=== PATIENT | female | born 1960 | race Caucasian/White ===

== ENCOUNTER 2020-02-13 09:03 | Emergency (ER) | payer BC, SELFPAY ==
[2020-02-13 09:13] VITALS: BP 147/86; PULSE 81; RESP 16; TEMP 36.4; O2SAT 100
--- NOTE | 2020-02-13 09:16 | ED.GENADUL_ITS ---
Discharge Plan Disposition Patient Disposition: HOME Condition: Stable Discharge Details Chief Complaint: Orthopedic Clinical Impression: Left wrist sprain Primary Care Provider: Heydi,Local ED Provider: Prisca Mahmood Home Meds and New Rx's Prescriptions: Continued Tirosint 137 mcg Capsule 137 mcg PO DAILY RF: 0 Hormone Replacement Cream DAILY RF: 0 Discharge Instructions Instructions: Wrist Sprain (ED) Additional Instructions: Rest, ice, and elevate the affected area as much as possible. Alternate tylenol and motrin as needed and directed for pain. Follow-up with your primary care doctor in 1 week as needed. Return to the emergency department with any worsening or new concerning symptoms. Discharge Data Discharge Physician: Prisca Mahmood Medical Decision Making 59yoF presents for left wrist pain for the past 2-1/2 weeks. Has not taken consistent medication for pain. Has been walking for large dogs which have been pulling and anticoagulation. Denies any known specific injury. Left wrist normal to inspection. Pain with flexion at wrist. Neurovascularly intact. No signs of carpal tunnel syndrome. Differential diagnosis includes occult fracture, sprain, strain, tendinitis. She declined a dose of Tylenol. Will refer for left wrist x-ray. Left wrist x-ray reviewed with radiology and negative. Patient given wrist splint which she states is comfortable. Advised on the importance of rice. Advised to follow-up as needed. Usual and customary return precautions given prior to discharge. Medical Records Medical records reviewed: Yes I reviewed the patient's medical records. Imaging Data Radiologic Study: Radiologist's impression: XR WRIST LT COMPLETE CLINICAL HISTORY: L wrist sprain, r/o acute fracture. TECHNIQUE: 2D digital imaging was performed. COMPARISON: No exams were available for comparison FINDINGS: BONES: No acute fracture is present. No bony destructive lesion is seen. JOINTS: The carpal bones are normally aligned. SOFT TISSUE: Normal. IMPRESSION: Unremarkable radiographs of the left wrist. HPI General Mode of arrival: ambulatory . Date/Time Provider Initiated Documentation: 02/13/20 09:13 . Limitations to Documentation: no limitations . Information obtained by: patient . HPI Narrative: Patient is a 59-year-old female presents with left wrist pain for the past 2.5 weeks. Patient states she recently drove from [place] and has large dogs which she has to walk frequently and they are pulling and yanking on the leash. She denies any known specific injury. She is also left-handed and has been writing a lot as her profession is a [employer]. She cannot take ibuprofen due to a previous history of ischemic bowel. She has not been taking any other pain medication other than Tylenol very rarely. She states she purchased a wrist splint and it has not been working. Related Data Home Medications Medication Instructions Recorded Confirmed Hormone Replacement Cream DAILY 02/13/20 Tirosint 137 mcg PO DAILY 02/13/20 02/13/20 Allergies Allergy/AdvReac Type Severity Reaction Status Date / Time No Known Allergies Allergy Unverified 02/13/20 09:18 Review of Systems All systems reviewed & are unremarkable except as noted in HPI and below PFSH Medical History Factor V Leiden (Acute) Ischemic bowel disease (Acute) Thyroid cancer (Acute) Surgical History History of thyroidectomy (Chronic) Social History (Updated 02/13/20 @ 09:32 by Prisca Mahmood DO) Smoking/Tobacco Use Status: Never Alcohol Intake: current Alcohol Intake frequency: a few times a month Alcohol type: wine Substance use type: does not use Exam Const General: cooperative, healthy appearing and no acute distress HENMT Head: normal to inspection Face and sinus: normal facial exam Eyes General: appearance normal, both eyes and all related structures EOM: EOM intact bilaterally Neck Neck: normal visual inspection and No submandibular swelling Lymphatic: no lymphadenopathy noted Chest Chest: normal inspection of the chest and no tenderness Resp Effort & Inspection: normal respiratory effort and able to speak in complete sentences Cardio Rate: regular rate Skin General skin exam: no rashes or lesions noted Neuro General: patient alert, patient awake and patient oriented x3 Cognition: normal cognition Speech: speech normal Motor: muscle tone normal throughout, strength 5/5 throughout and other (Negative Phalen and Tinel's sign) Sensory Exam: no sensory deficits noted Extrem Left upper extremity: wrist Details: tenderness Location: of the dorsal wrist and abnormal ROM Details: pain with active ROM Details: with flexion and pain with passive ROM Details: in flexion; no swelling and hand Details: normal to inspection, normal capillary refill, neuromotor exam normal, neurosensory exam normal, normal ROM of fingers, no swelling and other Psych Appearance: grossly normal Mental Status: mental status grossly normal Speech and Movement: speech and movement normal Affect: normal affect
--- NOTE | 2020-02-13 09:30 | DI.RAD_ITS ---
EXAM: XR WRIST LT COMPLETE CLINICAL HISTORY: L wrist sprain, r/o acute fracture. TECHNIQUE: 2D digital imaging was performed. COMPARISON: No exams were available for comparison FINDINGS: BONES: No acute fracture is present. No bony destructive lesion is seen. JOINTS: The carpal bones are normally aligned. SOFT TISSUE: Normal. IMPRESSION: Unremarkable radiographs of the left wrist. DATA REPOSITORY: RADIATION DOSE DELIVERED:
== END 2020-02-13 10:46 | disposition home or self-care (01) ==
PROVIDERS: Emergency Provider Physician Assistant
DX: M70.832 Other soft tissue disorders related to use, overuse and pressure, left forearm (principal)
CPT/HCPCS: 29125; 99283; 73110; L3908

== ENCOUNTER 2022-02-26 10:09 | Emergency (ER) | payer BC, SELFPAY ==
[2022-02-26 10:10] VITALS: BP 148/82; PULSE 83; RESP 20; TEMP 36.3; O2SAT 98
[2022-02-26 10:36] LABS: Abs Immature Grans 0.02 10^3/uL (0.0-0.06); Absolute Basophil Count 0.03 10^3/uL (0.0-0.2); Absolute Eosinophil Count 0.09 10^3/uL (0.0-0.7); Absolute Lymphocyte Count 1.65 10^3/uL (1.2-3.4); Absolute Monocyte Count 0.39 10^3/uL (0.1-0.8); Absolute Neutrophil Count 3.94 10^3/uL (1.2-6.7); Basophils % 0.5; Eosinophils % 1.5; HCT 40.9 % (36.0-46.0); HGB 13.8 g/dL (11.2-15.7); Immature Grans % 0.3; MCH 34.2 pg (27.0-33.0); MCHC 33.7 % (32.0-36.0); MCV 101 fL (80-95); MPV 8.2 fL (8.0-11.0); Monocytes % 6.4; Neutrophils % 64.3; Platelet Count 282 10^3/uL (130-400); RBC 4.04 10^6/uL (3.93-5.22); RDW-SD 45.2 fL; WBC 6.12 10^3/uL (4.4-10.8)
[2022-02-26 10:50] LABS: ALT 48 U/L (14-59); AST 25 U/L (15-37); Albumin 3.9 g/dL (3.4-5.0); Alkaline Phosphatase 59 U/L (46-116); Anion Gap 9.2 mmol/L (3-11); BUN 9 mg/dL (7-18); Bilirubin, Total 0.2 mg/dL (0.2-1.0); CO2 26.8 mmol/L (21.0-32.0); CREATININE 0.8 mg/dL (0.55-1.02); Calcium 8.7 mg/dL (8.5-10.1); Chloride 101 mmol/L (98-107); Glucose 116 mg/dL (74-106); Lipase 187 U/L (73-393); Potassium 3.8 mmol/L (3.5-5.1); Sodium 137 mmol/L (136-145); Total Protein 7.2 g/dL (6.4-8.2)
[2022-02-26] MEDS: Normal Saline 1,000 ML 1000 ML IV (11:00)
--- NOTE | 2022-02-26 11:01 | W.ED.GENAD ---
Discharge Plan Disposition Patient Disposition: HOME Condition: Stable Discharge Details Clinical Impression: Vaginal bleeding Primary Care Provider: Heydi,Local ED Provider: Azael Maldonado Home Meds and New Rx's Prescriptions: Continued Hormone Replacement Cream DAILY amlodipine 2.5 mg Tablet 2.5 mg PO DAILY nebivolol 10 mg Tablet 10 mg PO DAILY desvenlafaxine succinate 50 mg Tablet Extended Release 24 Hr 50 mg PO DAILY thyroid (pork) [[place] Thyroid] 120 mg Tablet 120 mg PO DAILY Discharge Instructions Instructions: Abnormal (Dysfunctional) Uterine Bleeding (ED) Additional Instructions: Laboratory values are reassuring at this time. Dr. Suarez personally evaluated you here in the ER and she will be happy to follow you in her office as an outpatient, I have supplied you with her referral. Please continue with your telemedicine film librarian specialist appointment tomorrow as already scheduled. Please watch for new or worsening symptoms and return to the ER for any concerns Referrals: Lisa Suarez MD [ [facility] STAFF PHYSICIAN] - Medical Decision Making This is a 61-year-old female, who presents medical history of factor V Leiden disorder, ischemic bowel disorder, status post thyroid cancer, presenting to the ER reporting vaginal bleeding over the past 24-36 hours. Patient states that she lives in [place] full-time but has a camper here and is here through May. She developed some vaginal bleeding back in December and had a D&C at the end of December, since that time, mild intermittent spotting, worse over the past day or so. Denies any clots, petechiae rash or easy bleeding/bruising. She states that she has gone through approximately 3 pads. We will concerned her today was that she felt lightheaded. Clinically she appears well, nontoxic, hemodynamically stable. Plan is to give IV fluid, obtain routine screening laboratory values to assess her H&H and reassess. Patient received 1 L IV fluid. Her laboratory values are grossly unremarkable which is reassuring. No indication for transfusion, further work-up in the ER, etc. Given her circumstances of living in [place], no PCP locally, I will reach out to our CLIENT PROJECT COORDINATOR on-call to discuss the case. Case discussed with Dr. Suarez who personally came to the ER to evaluate the patient. She will be happy to follow the patient in her office, the patient has a phone telemedicine call tomorrow with her team in [place], and believes that she can be safely discharged at this time. Standard discharge and return precautions were provided. Patient understands, is agreeable to this plan, and has no additional questions or concerns upon discharge. This documentation was generated using [employer]ob[employer] system, please disregard any oddities of phrase or misspellings. Lab Data Lab results reviewed: Yes I reviewed the patient's lab results. Labs: Laboratory Tests Range/Units 02/26/22 02/26/22 10:28 10:28 WBC (4.4-10.8) 10^3/uL 6.12 RBC (3.93-5.22) 10^6/uL 4.04 Hgb (11.2-15.7) g/dL 13.8 Hct (36.0-46.0) % 40.9 MCV (80-95) fL 101 H MCH (27.0-33.0) pg 34.2 H MCHC (32.0-36.0) % 33.7 RDW (11.7-14.6) % 12.0 Plt Count (130-400) 10^3/uL 282 MPV (8.0-11.0) fL 8.2 Immature Gran % 0.3 Neutrophils % 64.3 Lymphocytes % 27.0 Monocytes % 6.4 Eosinophils % 1.5 Basophils % 0.5 Nucleated RBC % (0.0-0.3) % 0.0 Absolute Neutrophils (1.2-6.7) 10^3/uL 3.94 Absolute Lymphocytes (1.2-3.4) 10^3/uL 1.65 Absolute Monocytes (0.1-0.8) 10^3/uL 0.39 Absolute Eosinophils (0.0-0.7) 10^3/uL 0.09 Absolute Basophils (0.0-0.2) 10^3/uL 0.03 Sodium (136-145) mmol/L 137 Potassium (3.5-5.1) mmol/L 3.8 Chloride (98-107) mmol/L 101 Carbon Dioxide (21.0-32.0) mmol/L 26.8 Anion Gap (3-11) mmol/L 9.2 BUN (7-18) mg/dL 9 Creatinine (0.55-1.02) mg/dL 0.8 Estimated GFR/1.73 m2 (mL/min/1.73m2) >= 60.00 Glucose (74-106) mg/dL 116 H Calcium (8.5-10.1) mg/dL 8.7 Total Bilirubin (0.2-1.0) mg/dL 0.2 AST (15-37) U/L 25 ALT (14-59) U/L 48 Alkaline Phosphatase (46-116) U/L 59 Total Protein (6.4-8.2) g/dL 7.2 Albumin (3.4-5.0) g/dL 3.9 Lipase (73-393) U/L 187 HPI General Mode of arrival: ambulatory. Date/Time Provider Initiated Documentation: 02/26/22 10:09. Limitations to Documentation: no limitations. Information obtained by: patient. History of Present Illness 61 year old F presents to the emergency department with the chief complaint of vaginal bleeding, pelvic cramping, described as moderate, with intensity rated at 4. Quality is described as aching, and is localized to the pelvis. Patient reports no radiation. Patient started experiencing this day(s) (2) and it has been constant. No relieving factors improve symptom(s), No exacerbating factors reported . Patient notes other (Had lightheadedness). Patient did receive the following treatments prior to arrival, none Related Data Home Medications Medication Instructions Recorded Confirmed Hormone Replacement Cream DAILY 02/13/20 amlodipine 2.5 mg tablet 2.5 mg PO DAILY 02/26/22 02/26/22 desvenlafaxine succinate 50 mg 50 mg PO DAILY 02/26/22 02/26/22 tablet,extended release 24 hr nebivolol 10 mg tablet 10 mg PO DAILY 02/26/22 02/26/22 thyroid (pork) 120 mg tablet 120 mg PO DAILY 02/26/22 02/26/22 ([place] Thyroid) Allergies Allergy/AdvReac Type Severity Reaction Status Date / Time No Known Allergies Allergy Unverified 02/26/22 10:14 General Stated Complaint: CLIENT PROJECT COORDINATOR SILKE: 4 Review of Systems Constitutional Constitutional: Denies fever(s) and Denies weakness Cardiovascular Cardiovascular: Denies chest pain and Denies dyspnea Respiratory Respiratory: Denies cough and Denies dyspnea Gastrointestinal Gastrointestinal: Reports abdominal pain (Cramping, pelvic), Denies nausea and Denies vomiting Genitourinary Genitourinary: Reports abnormal vaginal bleeding, Denies dysuria and Denies vaginal discharge Musculoskeletal Musculoskeletal: Denies back pain Integumentary/Breasts Skin/Breast: Denies rash Neurologic Neurologic: Denies weakness Hematologic/Lymphatic Hematologic/Lymphatic: Denies easy bleeding and Denies easy bruising PFSH All Active Problems (Updated 02/26/22 @ 11:25 by GODFREY Garcia) Vaginal bleeding (Acute) Medical History Factor V Leiden Ischemic bowel disease Thyroid cancer Surgical History History of thyroidectomy Social History Smoking/Tobacco Use Status: Former Tobacco Use Smoking risk assessment performed?: Yes Alcohol Intake: current Alcohol Intake frequency: a few times a month Alcohol type: wine Drug use: Occasionally Substance use type: marijuana Details: Gummies Do you feel safe at home: Yes Do you feel safe in your relationship?: Yes Exam Const General: cooperative, healthy appearing, comfortable and no acute distress Orientation: alert and awake [facility] Head: normal to inspection, normocephalic and atraumatic Eyes General: appearance normal, both eyes and all related structures Conjunctivae: conjunctivae normal Neck Neck: normal visual inspection, full ROM, trachea midline and supple Resp Effort & Inspection: normal respiratory effort and able to speak in complete sentences Auscultation: clear to auscultation bilaterally Cardio Rate: regular rate Rhythm: regular rhythm GI Palpation: soft, not firm, no guarding, no pulsatile masses and nontender Auscultation: normal bowel sounds Back/Spine/Pelvis Back: no CVA tenderness and No back tenderness Skin General skin exam: no rashes or lesions noted Neuro General: patient alert, patient awake, patient oriented x3, moves all extremities and no focal motor deficits Cognition: normal cognition Speech: speech normal Gait: normal gait Motor: muscle tone normal throughout Sensory Exam: no sensory deficits noted Extrem General: normal to inspection, full ROM and capillary refill normal Psych Appearance: grossly normal Mental Status: mental status grossly normal Course Vital Signs Vital signs: Vital Signs Temperature 36.3 C L 02/26/22 10:10 Pulse 83 02/26/22 10:10 Respiratory Rate 20 02/26/22 10:10 Blood Pressure 148/82 H 02/26/22 10:10 Pulse Oximetry 98 02/26/22 10:10 Temperature 36.3 C L 02/26/22 10:10 Temperature Source Temporal Artery Scan 02/26/22 10:10 Pulse 83 02/26/22 10:10 Respiratory Rate 20 02/26/22 10:10 Respiratory Effort 02/26/22 10:13 Blood Pressure 148/82 H 02/26/22 10:10 Blood Pressure Position Sitting 02/26/22 10:10 Pulse Oximetry 98 02/26/22 10:10 Oxygen Delivery Method Room Air 02/26/22 10:10 Oxygen Flow Rate 0 02/26/22 10:10 Pain Level 1 02/26/22 10:10 Lab/Test Results Lab/Test Results: Laboratory Tests Range/Units 02/26/22 02/26/22 10:28 10:28 WBC (4.4-10.8) 10^3/uL 6.12 RBC (3.93-5.22) 10^6/uL 4.04 Hgb (11.2-15.7) g/dL 13.8 Hct (36.0-46.0) % 40.9 MCV (80-95) fL 101 H MCH (27.0-33.0) pg 34.2 H MCHC (32.0-36.0) % 33.7 RDW (11.7-14.6) % 12.0 Plt Count (130-400) 10^3/uL 282 MPV (8.0-11.0) fL 8.2 Immature Gran % 0.3 Neutrophils % 64.3 Lymphocytes % 27.0 Monocytes % 6.4 Eosinophils % 1.5 Basophils % 0.5 Nucleated RBC % (0.0-0.3) % 0.0 Absolute Neutrophils (1.2-6.7) 10^3/uL 3.94 Absolute Lymphocytes (1.2-3.4) 10^3/uL 1.65 Absolute Monocytes (0.1-0.8) 10^3/uL 0.39 Absolute Eosinophils (0.0-0.7) 10^3/uL 0.09 Absolute Basophils (0.0-0.2) 10^3/uL 0.03 Sodium (136-145) mmol/L 137 Potassium (3.5-5.1) mmol/L 3.8 Chloride (98-107) mmol/L 101 Carbon Dioxide (21.0-32.0) mmol/L 26.8 Anion Gap (3-11) mmol/L 9.2 BUN (7-18) mg/dL 9 Creatinine (0.55-1.02) mg/dL 0.8 Estimated GFR/1.73 m2 (mL/min/1.73m2) >= 60.00 Glucose (74-106) mg/dL 116 H Calcium (8.5-10.1) mg/dL 8.7 Total Bilirubin (0.2-1.0) mg/dL 0.2 AST (15-37) U/L 25 ALT (14-59) U/L 48 Alkaline Phosphatase (46-116) U/L 59 Total Protein (6.4-8.2) g/dL 7.2 Albumin (3.4-5.0) g/dL 3.9 Lipase (73-393) U/L 187
== END 2022-02-26 11:36 | disposition home or self-care (01) ==
PROVIDERS: Emergency Provider Physician Assistant
DX: N93.8 Other specified abnormal uterine and vaginal bleeding (principal)
CPT/HCPCS: 36415; 80053; 83690; 96360; 99284; 85025; 99283